=== PATIENT | male | born 1995 | race Caucasian/White ===

== ENCOUNTER 2018-04-16 19:45 | Emergency (ER) | payer SELFPAY ==
[2018-04-16 20:01] VITALS: BP 112/75; PULSE 82; RESP 18; TEMP 98.6; O2SAT 99
--- NOTE | 2018-04-16 20:27 | C.PDOC ---
History Of Present Illness 22 y/o male presents to the ER complaining of left foot pain since yesterday. The patient states he jumped over a fence yesterday and injured his left foot. Patient reports that he was bale to ambulate with a steady gait but he noticed swelling today prompting visit. He claims to have a history of ankle fracture several years ago in the same leg. The patient denies any radiating pain, other injuries, numbness or weakness. Time Seen by Provider: 04/16/18 20:04 Chief Complaint (Nursing): Lower Extremity Problem/Injury History Per: Patient History/Exam Limitations: no limitations Onset/Duration Of Symptoms: Hrs Current Symptoms Are (Timing): Still Present Recent travel outside of the [place]: No - Ankle/Foot Description Of Injury: Fell Past Medical History Reviewed: Historical Data, Nursing Documentation, Vital Signs Vital Signs: Last Vital Signs Temp 98.6 F 04/16/18 19:58 Pulse 82 04/16/18 19:58 Resp 18 04/16/18 19:58 BP 112/75 04/16/18 19:58 Pulse Ox 99 04/21/18 15:13 - Medical History Other PMH: Deaf Other Surgeries: Surgery to correct deafness Family History: States: Unknown Family Hx - Social History Hx Tobacco Use: No Hx Alcohol Use: No Hx Substance Use: No - Immunization History Hx Tetanus Toxoid Vaccination: Yes Hx Influenza Vaccination: No Hx Pneumococcal Vaccination: No Review Of Systems Except As Marked, All Systems Reviewed And Found Negative. Constitutional: Negative for: Fever Musculoskeletal: Positive for: Foot Pain (left foot) Skin: Negative for: Lesions, Bruising Neurological: Negative for: Weakness, Numbness Physical Exam - Physical Exam Appears: Well, Non-toxic, No Acute Distress Skin: Normal Color, Warm, No Rash Head: Atraumatic, Normacephalic Eye(s): bilateral: PERRL, EOMI Ear(s): Bilateral: Normal Oral Mucosa: Moist Neck: Normal ROM Cardiovascular: Rhythm Regular, No Murmur, Other (good capillary refill ) Respiratory: Normal Breath Sounds, No Rales, No Rhonchi, No Wheezing Extremity: Normal ROM, Tenderness (over mid dorsal foot over 3rd-5th metatarsal) , Capillary Refill (< 2 sec), Swelling (Left foot --moderate swelling ) Extremity: Bilateral: Atraumatic, Normal Color And Temperature, Normal ROM Pulses: Left Dorsalis Pedis: Normal, Right Dorsalis Pedis: Normal Neurological/Psych: Oriented x3, Normal Motor, Normal Sensation Gait: Steady ED Course And Treatment O2 Sat by Pulse Oximetry: 99 (RA) Pulse Ox Interpretation: Normal Medical Decision Making Medical Decision Making: Took and X-Ray of left foot and gave pt motrin 600 mg PO. Patient is stable for discharge Disposition - Disposition Referrals: [facility] [Outside] [facility] [Outside] Disposition: HOME/ ROUTINE Disposition Time: 20:25 Condition: GOOD Additional Instructions: Follow up with the medical doctor within 1-2 days, Return if worsened. Prescriptions: Acetaminophen [Tylenol] 325 mg PO Q6 PRN #30 tab PRN Reason: Pain, Mild (1-3) Instructions: Foot Sprain (DC) Forms: [facility] ([employer]), Work Excuse - Clinical Impression Clinical Impression: Foot sprain - PA / DIRECTOR DIABETES / Resident Statement MD/DO has reviewed & agrees with the documentation as recorded. - Scribe Statement The provider has reviewed the documentation as recorded by the Scribe (Yoly Patel) All medical record entries made by the Scribe were at my direction and personally dictated by me. I have reviewed the chart and agree that the record accurately reflects my personal performance of the history, physical exam, medical decision making, and the department course for this patient. I have also personally directed, reviewed, and agree with the discharge instructions and disposition.
--- NOTE | 2018-04-17 09:33 | RAD ---
Date of service: 04/16/2018 PROCEDURE: Left Foot Radiographs. HISTORY: pain COMPARISON: None. FINDINGS: BONES: Normal. No fracture. JOINTS: Normal. SOFT TISSUES: Normal. OTHER FINDINGS: None. IMPRESSION: Normal left foot radiographs.
== END 2018-04-16 20:57 | disposition home or self-care (01) ==
LOC: C.ER 19:45 → SUPCPDRO 19:45 → C.ER 20:57
DX: S93.602A Unspecified sprain of left foot, initial encounter (principal); X50.0XXA Overexertion from strenuous movement or load, initial encounter; Y92.89 Other specified places as the place of occurrence of the external cause